=== PATIENT | female | born 1965 | race Caucasian/White ===

== ENCOUNTER 2024-03-31 | Outpatient (REF) | payer OTHER, SELFPAY ==
--- NOTE | 2024-03-31 | EMG_ITS ---
Chief complaint: Patient having left worse than right arm/hand paresthesias. Possibly related to neck pain. Although it has improved since cervical epidural injections. Reason for referral: Evaluate for radiculopathy Referred by: Dr. Almanza Procedure done: Upper and lower extremity EMG/NCS ordered but patient denies any symptoms in lower extremities. Bilateral upper extremity EMG/NCS done. Precautions and/or limitations: None The limb temperature was monitored continuously and remained between 32-36 degrees C during the performance of the NCS. Nerve Conduction Studies Anti Sensory Summary Table ?Stim Site NR Onset (ms) Norm Onset (ms) Peak (ms) Norm Peak (ms) O-P Amp (?V) Norm O-P Amp Site1 Site2 Delta-0 (ms) Dist (cm) Jeevan (m/s) Norm Jeevan (m/s) Left Median Anti Sensory (2nd Digit) Wrist ? 4.9 6.4 <3.6 14.8 >10 Wrist 2nd Digit 4.9 14.0 29 Right Median Anti Sensory (2nd Digit) Wrist ? 4.5 5.8 <3.6 19.7 >10 Wrist 2nd Digit 4.5 14.0 31 Right Radial Anti Sensory (Thumb) Forearm ? 1.9 2.6 <3.1 43.0 Forearm Thumb 1.9 0.0 Left Ulnar Anti Sensory (5th Digit) Wrist ? 2.8 3.9 <3.7 21.4 >15.0 Wrist 5th Digit 2.8 14.0 50 Right Ulnar Anti Sensory (5th Digit) Wrist ? 2.3 3.7 <3.7 34.7 >15.0 Wrist 5th Digit 2.3 14.0 61 Motor Summary Table ?Stim Site NR Onset (ms) Norm Onset (ms) O-P Amp (mV) Norm O-P Amp iAmp (mV) Amp (1st) (%) Site1 Site2 Delta-0 (ms) Dist (cm) Jeevan (m/s) Norm Jeevan (m/s) Left Median Motor (Abd Poll Brev) Wrist ? 5.6 <3.9 8.1 >4.5 9.6 100.0 Elbow Wrist 3.8 18.0 47 >45 Elbow ? 9.4 9.7 11.7 119.8 Right Median Motor (Abd Poll Brev) Wrist ? 5.9 <3.9 7.5 >4.5 9.0 100.0 Elbow Wrist 3.6 20.0 56 >45 Elbow ? 9.5 7.6 9.2 101.3 Left Ulnar Motor (Abd Dig Minimi) Wrist ? 2.7 <3.0 12.2 >5 16.7 100.0 B Elbow Wrist 3.3 16.5 50 >45 B Elbow ? 6.0 11.7 15.1 95.9 A Elbow B Elbow 1.6 10.0 63 >45 A Elbow ? 7.6 11.6 15.4 95.1 Right Ulnar Motor (Abd Dig Minimi) Wrist ? 2.9 <3.0 12.8 >5 14.5 100.0 B Elbow Wrist 3.2 18.0 56 >45 B Elbow ? 6.1 12.5 14.1 97.7 A Elbow B Elbow 1.3 10.0 77 >45 A Elbow ? 7.4 11.7 13.2 91.4 EMG ?Side Muscle Nerve Root Ins Act Fibs Psw Amp Dur Poly Recrt Int Pat Comment Right 1stDorInt Ulnar C8-T1 Nml Nml Nml Nml Nml 0 Nml Complete Right FlexCarRad Median C6-7 Nml Nml Nml Nml Nml 0 Nml Complete Right Biceps Musculocut C5-6 Nml Nml Nml Nml Nml 0 Nml Complete Right Triceps Radial C6-7-8 Nml Nml Nml Nml Nml 0 Nml Complete Right Deltoid Axillary C5-6 Nml Nml Nml Nml Nml 0 Nml Complete Left 1stDorInt Ulnar C8-T1 Nml Nml Nml Nml Nml 0 Nml Complete Left FlexCarRad Median C6-7 Nml Nml Nml Nml Nml 0 Nml Complete Left Biceps Musculocut C5-6 Nml Nml Nml Nml Nml 0 Nml Complete Left Triceps Radial C6-7-8 Nml Nml Nml Nml Nml 0 Nml Complete Left Deltoid Axillary C5-6 Nml Nml Nml Nml Nml 0 Nml Complete FINDINGS: Bilateral median motor nerves showed prolonged distal latency, normal amplitude and normal conduction velocity. Bilateral median sensory nerves showed prolonged peak latency. All other nerves tested were within normal. Concentric needle EMG was performed in selected muscles of the bilateral upper extremity. Study did not reveal signs of electric abnormalities as shown in the table above. IMPRESSION: 1. This is an abnormal study. 2. There is electrodiagnostic evidence for bilateral moderate-severe median neuropathy at the wrist, consistent with carpal tunnel syndrome. 3. There is no electrodiagnostic evidence for ulnar neuropathy, brachial plexopathy, or cervical radiculopathy. Thank you for your kind referral. Elyssa Cuevas MD, LESLYE Board Certified, [place] [employer] (ABPMR) Board Certified, [place] [employer] Electro[employer] (ABEM) CODIN [phone] [id number] [id number]
== END 2024-03-31 00:01 | disposition home or self-care (01) ==
LOC: HO.NEURO
PROVIDERS: PCP Nurse Practitioner Family; Visit Provider Nurse Practitioner Family
DX: R20.2 Paresthesia of skin (principal)
CPT/HCPCS: 95886; 95911